=== PATIENT | female | born 1980 | race Caucasian/White ===

== ENCOUNTER 2018-04-04 20:01 | Emergency (ER) | payer MEDICAID ==
[~2018-04-04] VITALS: Ht 162.6 cm; Wt 65.8 kg
[2018-04-04 20:08] VITALS: BP_SYST 129
--- NOTE | 2018-04-04 20:10 | NUR ---
Pt states that she has had a UTI and been treated for that with bactrim. Pt still feels bladder pressure. Pt reports throbbing headache and chest pain since the morning. Pt reports unexplained bruising on her breast. Denies SOB. Will continue to monitor via diplomatic interpreter/translator. No distress noted. AAOx4.
--- NOTE | 2018-04-04 20:10 | NUR ---
Placed in room 3 . Placed on caterer helper, blood pressure machine and pulse oximeter. To gown for exam. Side rails up. Report given to Torsten NOE.
[2018-04-04] MEDS ORDERED: ASPIRIN 325 MG TABLET PO ONE (20:15)
--- NOTE | 2018-04-04 20:15 | NUR ---
FERCHO Allen at bedside examining patient.
[2018-04-04] MEDS ORDERED: SUMAtriptan SUCCINATE 6 MG/0.5 ML VIAL SUBCUT ONE (20:30)
[2018-04-04 20:37] LABS: BILIRUBIN,URINE NEGATIVE (NEGATIVE); CLARITY/URINE CLEAR (CLEAR); COLOR,URINE YELLOW (YELLOW); GLUCOSE,URINE NEGATIVE (NEGATIVE); KETONES,URINE NEGATIVE (NEGATIVE); LEUKOCYTE ESTERASE ,URINE NEGATIVE (NEGATIVE); NITRITE, URINE NEGATIVE (NEGATIVE); PROTEIN URINE NEGATIVE (NEGATIVE); UROBILINOGEN,URINE 0.2 (0.2-1.0)
[2018-04-04 20:38] LABS: BLOOD, URINE TRACE (NEGATIVE)
[2018-04-04 20:42] LABS: BASOPHILS # (AUTO) 0.1 K/uL (0.0-0.2); EOSINOPHILS # (AUTO) 0.2 K/uL (0.0-0.4); LYMPHOCYTES # (AUTO) 2.3 K/uL (1.0-5.5); MEAN CORPUSCULAR HGB CONC 33 % (32-36); MEAN CORPUSCULAR VOLUME 73 fL (79.0-98.0); MONOCYTES # (AUTO) 0.4 K/uL (0.0-1.0); RED BLOOD CELL COUNT(AUTO) 4.61 MIL/uL (4.2-6.2)
[2018-04-04 20:42] LABS: BACTERIA,URINE MODERATE /HPF (None Seen); RBC,URINE 0-3 /HPF (0-3); WBC,URINE 0-3 /HPF (0-3)
[2018-04-04 20:49] LABS: BARBITURATE, URINE NEGATIVE (NEG <=200); BENZODIAZEPINE, URINE NEGATIVE (NEG <=150); CANNABINOID, URINE NEGATIVE (NEG <=50); COCAINE, URINE NEGATIVE (NEG <=150); METHAMPHETAMINES SCREEN,URINE NEGATIVE (NEG <=500); OPIATE, URINE NEGATIVE (NEG <=100); PHENCYCLIDINE SCREEN,URINE NEGATIVE (NEG <=25); UR TRICYCLIC ANTIDEPRESSANTS NEGATIVE (NEG <=300); URINE AMPHETAMINE NEGATIVE (NEG <=500); URINE METHADONE NEGATIVE (NEG <=200); URINE OXYCODONE SCREEN NEGATIVE (NEG <=100); URINE PROPOXYPHENE SCREEN NEGATIVE (NEG <=300)
[2018-04-04 20:49] LABS: EOSINOPHILS % (AUTO) 2.4 % (0.0-4.0); HEMATOCRIT 33.7 % (36-48); HEMOGLOBIN 11.2 g/dL (12.0-16.0); LYMPHOCYTES % (AUTO) 26.6 % (20.5-51.5); MEAN CORPUSCULAR HEMOGLOBIN 24 pg (27-31); MONOCYTES % (AUTO) 5.2 % (1.7-9.3); NEUTROPHILS # (AUTO) 5.6 K/uL (1.8-7.7); NEUTROPHILS % (AUTO) 64.8 % (40.0-70.0); PLATELET COUNT (AUTO) 271 K/uL (130-430); PROTHROMBIN TIME 10.1 SECS (9.5-12.5); RED CELL DISTRIBUTION WIDTH 14.9 % (9.0-15.0); WHITE BLOOD COUNT (AUTO) 8.6 K/uL (4.8-10.8)
[2018-04-04 20:51] LABS: CALCIUM 9.1 mg/dL (8.4-11.0); CREATININE 0.73 mg/dL (0.55-1.30); POTASSIUM 4.1 mmol/L (3.5-5.1)
[2018-04-04 20:54] VITALS: BP_SYST 133
--- NOTE | 2018-04-04 20:54 | NUR ---
Patient given written and verbal discharge instructions and verbalizes understanding. ER MD discussed with patient the results and treatment provided. Patient in stable condition. ID arm band removed. IV catheter removed intact and dressing applied, no active bleeding. Rx of Cipro given. Patient educated on pain management and to follow up with PMD. Pain Scale 0/10. Opportunity for questions provided and answered. Medication side effect fact sheet provided.
[2018-04-04 20:57] LABS: ALBUMIN 3.8 g/dL (3.4-4.8); TOTAL BILIRUBIN 0.2 mg/dL (0.0-1.0)
[2018-04-04] MEDS ORDERED: IBUPROFEN 800 MG TABLET PO ONE (21:30)
[2018-04-04] MEDS ORDERED: CIPROFLOXACIN HCL 500 MG TABLET PO ONE (21:30)
== END 2018-04-04 20:54 | disposition home or self-care (01) ==
LOC: SED 20:01
DX: M94.0 Chondrocostal junction syndrome [Tietze] (principal); N30.80 Other cystitis without hematuria; G43.909 Migraine, unspecified, not intractable, without status migrainosus; J45.909 Unspecified asthma, uncomplicated; Z88.0 Allergy status to penicillin; Z88.6 Allergy status to analgesic agent; Z88.8 Allergy status to other drugs, medicaments and biological substances
CPT/HCPCS: 36415; 71045; 80053; 80307; 81000; 81025; 83880; 84484; 85025; 85379; 85610; 85730; 87086; 93005; 96372; 99285; J3030

== ENCOUNTER 2018-09-11 16:41 | Emergency (ER) | payer MEDICAID ==
[~2018-09-11] VITALS: Ht 162.6 cm; Wt 64.4 kg
[2018-09-11 17:27] VITALS: BP_SYST 141
--- NOTE | 2018-09-11 17:54 | NUR ---
called for pt unable to locate.
--- NOTE | 2018-09-11 18:25 | NUR ---
called for pt unable to locate.
--- NOTE | 2018-09-11 19:05 | NUR ---
Called for pt unable to locate. Pt presumed to have LWBS.
== END 2018-09-11 20:00 | disposition left against medical advice (07) ==
LOC: SED 16:41
DX: M79.605 Pain in left leg (principal); Z53.21 Procedure and treatment not carried out due to patient leaving prior to being seen by health care provider

== ENCOUNTER 2018-12-19 19:42 | Emergency (ER) | payer MEDICAID ==
[~2018-12-19] VITALS: Ht 162.6 cm; Wt 64.9 kg
[2018-12-19 19:49] VITALS: BP_SYST 100
[2018-12-19] MEDS ORDERED: NACL 0.9% 1,000 ML IV ONE (20:12)
[2018-12-19] MEDS ORDERED: MAGNESIUM SULFATE 50 ML IV ONE (20:15)
[2018-12-19] MEDS ORDERED: methylPREDNISolone SOD SUCC/PF 62.5 MG/ML VIAL IVP ONE (20:15)
[2018-12-19] MEDS ORDERED: IPRATROPIUM BROM 0.5 MG/2.5 ML VIAL.NEB (ATROVENT) IH ONE (20:15)
[2018-12-19] MEDS ORDERED: LevALBUTEROL HCL 1.25 MG/0.5 ML *CONC.* VIAL.NEB (XOPENEX CONC.) INH ONE ×4 (20:15→20:23)
[2018-12-19] MEDS ORDERED: IPRATROPIUM BROM 0.5 MG/2.5 ML VIAL.NEB (ATROVENT) INH ONE (20:23)
[2018-12-19 21:07] LABS: BASOPHILS # (AUTO) 0.1 K/uL (0.0-0.2); BASOPHILS % (AUTO) 0.8 % (0.0-2.0); EOSINOPHILS # (AUTO) 0.1 K/uL (0.0-0.4); EOSINOPHILS % (AUTO) 0.6 % (0.0-4.0); HEMATOCRIT 34.3 % (36-48); HEMOGLOBIN 10.7 g/dL (12.0-16.0); LYMPHOCYTES # (AUTO) 2.6 K/uL (1.0-5.5); LYMPHOCYTES % (AUTO) 21.2 % (20.5-51.5); MEAN CORPUSCULAR HEMOGLOBIN 23 pg (27-31); MEAN CORPUSCULAR HGB CONC 31 % (32-36); MEAN CORPUSCULAR VOLUME 74 fL (79.0-98.0); MONOCYTES # (AUTO) 0.8 K/uL (0.0-1.0); MONOCYTES % (AUTO) 6.6 % (1.7-9.3); NEUTROPHILS # (AUTO) 8.6 K/uL (1.8-7.7); NEUTROPHILS % (AUTO) 70.8 % (40.0-70.0); PLATELET COUNT (AUTO) 226 K/uL (130-430); RED BLOOD CELL COUNT(AUTO) 4.65 MIL/uL (4.2-6.2); RED CELL DISTRIBUTION WIDTH 15.3 % (9.0-15.0); WHITE BLOOD COUNT (AUTO) 12.1 K/uL (4.8-10.8)
[2018-12-19 21:20] LABS: CREATININE 0.93 mg/dL (0.55-1.30); POTASSIUM 3.8 mmol/L (3.5-5.1)
[2018-12-19 21:26] LABS: ALBUMIN 3.9 g/dL (3.4-4.8); TOTAL BILIRUBIN 0.2 mg/dL (0.0-1.0)
[2018-12-19] MEDS ORDERED: IBUP-2253 PO (22:25)
[2018-12-19] MEDS ORDERED: ASPI-862 PO (22:25)
[2018-12-19] MEDS ORDERED: FLO44 INH (22:25)
[2018-12-19] MEDS ORDERED: IPRA3AMP9 INH (22:25)
[2018-12-19] MEDS ORDERED: MONT10TA22 (22:25)
[2018-12-19] MEDS ORDERED: ALBMDI INH (22:25)
[2018-12-19 23:20] VITALS: BP_SYST 119
== END 2018-12-19 23:45 | disposition short-term general hospital (02) ==
LOC: SED 19:42
DX: J45.901 Unspecified asthma with (acute) exacerbation (principal); R05 Cough; R50.9 Fever, unspecified; Z86.73 Personal history of transient ischemic attack (TIA), and cerebral infarction without residual deficits; Z90.89 Acquired absence of other organs; Z98.51 Tubal ligation status; Z79.82 Long term (current) use of aspirin; Z79.899 Other long term (current) drug therapy; Z88.0 Allergy status to penicillin; Z88.1 Allergy status to other antibiotic agents; Z88.5 Allergy status to narcotic agent; Z88.6 Allergy status to analgesic agent; Z88.8 Allergy status to other drugs, medicaments and biological substances
CPT/HCPCS: 36415; 71045; 80053; 85025; 94640; 96365; 96375; 99285; J2930; J3475; J7612